=== PATIENT | female | born 1985 | race Caucasian/White ===

== ENCOUNTER 2016-06-17 08:21 | Emergency (ER) | payer BC ==
[2016-06-17 08:28] VITALS: BP 141/82
--- NOTE | 2016-06-17 11:14 | ED ---
Saul Moffett Matthew, scribed for Shadi Eli MD on 06/17/16 at 1028 . Back Pain - HPI Summary HPI Summary: A 30 y/o female presents to the ED with right sided mid back pain since a year ago, which worsened in the last 2 week becoming constant. The pain is described as pressure, which occasionally radiates into the right leg, and occasionally causes tingling into the neck. The patient saw a physician 5 months ago, where she had a CT scan, US, and XR. She denies any weakness, urinary incontinence, and bowel incontinence. The pain is unaffected by position and breathing. The patient's fiance is currently getting an IVIG in the hospital. - History of Current Complaint Chief Complaint: EDBackInjuryPain Stated Complaint: BACK PAIN Time Seen by Provider: 06/17/16 08:57 Onset/Duration: Still Present Onset/Duration: Started Weeks Ago - worsened in the last 2 weeks, Atraumatic, Still Present Timing: Constant Severity Initially: Mild Severity Currently: Mild Pain Intensity: 0 Aggravating Symptom(s): Nothing Alleviating Symptom(s): Nothing Associated Signs And Symptoms: Negative: Weakness, Bladder Incontinence, Bowel Incontinence - Allergies/Home Medications Allergies/Adverse Reactions: Allergies Allergy/AdvReac Type Severity Reaction Status Date / Time Metronidazole [From Flagyl] Allergy Hives Verified 06/17/16 08:29 Sulfa Antibiotics Allergy Hives Verified 06/17/16 08:29 Sulfamethoxazole Allergy Hives Verified 06/17/16 08:29 w/Trimethoprim [From Bactrim] Home Medications: Home Medications NK [No Home Medications Reported] 06/17/16 [History Confirmed 06/17/16] PMH/Surg Hx/FS Hx/Imm Hx Previously Healthy: Yes Endocrine/Hematology History: Denies: Hx Diabetes Infectious Disease History: No Infectious Disease History: Denies: Traveled Outside the [place] in Last 30 Days - Family History Family History: FHx of colon CA. - Social History Lives: With Family Hx Substance Use: No Substance Use Type: Reports: None Hx Tobacco Use: No Review of Systems Constitutional: Negative Eyes: Negative ENT: Negative Cardiovascular: Negative Respiratory: Negative Gastrointestinal: Negative Genitourinary: Negative Positive: Myalgia - mid back pain Skin: Negative Neurological: Negative Psychological: Normal All Other Systems Reviewed And Are Negative: Yes Physical Exam Triage Information Reviewed: Yes Vital Signs On Initial Exam: Initial Vitals Temp Pulse Resp BP Pulse Ox 97.6 F 79 17 141/82 100 06/17/16 08:25 06/17/16 08:25 06/17/16 08:25 06/17/16 08:25 06/17/16 08:25 Vital Signs Reviewed: Yes Appearance: Positive: Well-Appearing, No Pain Distress Skin: Positive: Warm, Skin Color Reflects Adequate Perfusion, Dry Head/Face: Positive: Normal Head/Face Inspection Eyes: Positive: EOMI, KENNY ENT: Positive: Normal ENT inspection Neck: Positive: Supple, Nontender Respiratory/Lung Sounds: Positive: Clear to Auscultation, Breath Sounds Present Cardiovascular: Positive: RRR Abdomen Description: Positive: Nontender, Soft Bowel Sounds: Positive: Present Musculoskeletal: Positive: Strength/ROM Intact Neurological: Positive: Alert, Oriented to Person Place, Time Psychiatric: Positive: Affect/Mood Appropriate Diagnostics - Vital Signs Vital Signs Temp Pulse Resp BP Pulse Ox 06/17/16 08:25 97.6 F 79 17 141/82 100 - Laboratory Lab Statement: Any lab studies that have been ordered have been reviewed, and results considered in the medical decision making process. Back Pain Course/Dx - Course Course Of Treatment: I think Ms. Lang has a dorsal radiculopathy. She essentially came in because her SO is here for 8 hours getting IVIG and she was hoping for an MRI. She doesn't meet criteria for an emergent MRI and I'm not sure I can get one but offered to get her records sent oveer and do further testing here. She declined and left after speaking with her PMD about an outpatient MR. - Diagnoses Provider Diagnoses: dorsal radiculopathy Discharge - Discharge Plan Condition: Stable Disposition: HOME Patient Education Materials: Cervical Radiculopathy (ED) Referrals: Non Staff,Doctor [Primary Care Provider] - Additional Instructions: Please follow-up with your primary care physician. The documentation as recorded by the Saul wilde Matthew accurately reflects the service I personally performed and the decisions made by me, Shadi Eli MD.
== END 2016-06-17 10:25 | disposition home or self-care (01) ==
LOC: ED 08:21
DX: M54.10 Radiculopathy, site unspecified (principal); M54.9 Dorsalgia, unspecified
CPT/HCPCS: 99281